=== PATIENT | male | born 1965 ===

== ENCOUNTER 2019-11-27 19:40 | Outpatient (CLI) | payer MEDICARE, MEDICAID, SELFPAY ==
[2019-11-27 21:12] LABS: Glucose Urine UA Norm (Normal); Ketones Urine Negative (Negative); Protein Urine 3+ (Negative); Specific Gravity, Urine 1.015 (1.005-1.030); Urine Appearance Cloudy (CLEAR); Urine Color Yellow (Yellow); pH Urine 6 (5-7)
[2019-11-27 21:13] LABS: Add Urine Microscopic? YES; Bilirubin Urine Neg (NEGATIVE); Blood Urine 3+ (Negative); Leukocyte Esterase Urine 2+ (Negative); Nitrate Urine Negative (Negative); Urobilinogen Urine Norm (Negative)
[2019-11-27 21:24] LABS: WBC Urine TOO NUMEROUS TO CNT /hpf (0-5)
[2019-11-27 21:25] LABS: Add Urine Culture? Yes; Bacteria Urine 3+; Squamous Epithelial Cell Urine 0-4 (0-5)
== END 2019-11-27 19:41 | disposition home or self-care (01) ==
LOC: LAB 19:47
PROVIDERS: Family Provider Internal Medicine; Visit Provider Internal Medicine
DX: R41.0 Disorientation, unspecified (principal); R50.9 Fever, unspecified
CPT/HCPCS: 81001